=== PATIENT | female | born 1970 | race Caucasian/White ===

== ENCOUNTER 2019-04-30 16:10 | Observation (INO) ==
[2019-04-30] MEDS ORDERED: ZOFRAN INJ 4 MG VIAL IVP PRN (17:28)
[2019-04-30] MEDS ORDERED: MORPHINE SULFATE INJ 2 MG INJ IVP PRN (17:28)
[2019-04-30 18:11] LABS: BASOPHILS % (AUTO) 0.3 % (0.2-1.0); EOSINOPHILS % (AUTO) 0.1 % (0.9-2.9); HEMATOCRIT 46.7 % (36.0-47.0); HEMOGLOBIN 15.9 g/dL (12.0-16.0); LYMPHOCYTES # (AUTO) 0.9 X10^3/uL (1.3-2.9); LYMPHOCYTES % (AUTO) 7.9 % (21.0-51.0); MEAN CORPUSCULAR HEMOGLOBIN 29.9 pg (27.0-34.0); MEAN CORPUSCULAR VOLUME 87.9 fL (80.0-100.0); MEAN PLATELET VOLUME 9.2 fL (7.4-11.0); MONOCYTES # (AUTO) 0.6 x10^3/uL (0.3-0.8); MONOCYTES % (AUTO) 5.4 % (0.0-13.0); NEUTROPHILS # (AUTO) 10.3 x10^3/uL (2.2-4.8); NEUTROPHILS % (AUTO) 86.3 % (42.0-75.0); PLATELET COUNT 250 X10^3/uL (150.0-450.0); RED BLOOD COUNT 5.32 X10^6/uL (3.5-5.4); RED CELL DISTRIBUTION WIDTH 14.4 % (11.6-16.5); WHITE BLOOD COUNT 11.9 X10^3/uL (3.6-10.0)
[2019-04-30 18:19] LABS: ALANINE AMINOTRANSFERASE < 6 Units/L (12-78); ALBUMIN 2.5 g/dL (3.4-5.0); ALKALINE PHOSPHATASE 111 Units/L (46-116); ASPARTATE AMINO TRANSFERASE 10 Units/L (15-37); BLOOD UREA NITROGEN 30 mg/dL (7-18); CALCIUM 9.1 mg/dL (8.5-10.1); CARBON DIOXIDE 26.4 mmol/L (21-32); CHLORIDE 92 mmol/L (98-107); COR CA(FOR HYPOALB) 10.3 mg/dL (8.5-10.1); CREATININE 0.89 mg/dL (0.55-1.02); SODIUM 131 mmol/L (136-145); TOTAL PROTEIN 7.3 g/dL (6.4-8.2); eGFR NON BLACK RACES > 60 (>60)
[2019-04-30 18:20] VITALS: BMI 30.3
[2019-04-30] MEDS ORDERED: K-DUR TAB 20 MEQ PO PRN (18:28)
[2019-04-30] MEDS ORDERED: POTASSIUM CHL 40 MEQ/NS 0.45% 500 ML IV PRN (18:28)
[2019-04-30] MEDS ORDERED: MICRO K EXTEN CAP 10 MEQ PO PRN (18:28)
[2019-04-30] MEDS ORDERED: KLOR-CON PO PRN (18:28)
[2019-04-30] MEDS ORDERED: POTASSIUM CHLORIDE LIQ 20 MEQ UDC PO PRN (18:28)
[2019-04-30] MEDS ORDERED: POTASSIUM CHL 60 MEQ/NS 0.45% 500 ML IV PRN (18:28)
--- NOTE | 2019-04-30 18:34 | RAD ---
History: Pain Exam: KUB Comparison: None Technique: A supine view the abdomen was obtained. Findings: There are multiple loops of mildly dilated small bowel throughout the abdomen. The colon is normal caliber. Surgical clips are seen in the lower pelvis. There is no free air. There are some ill-defined rounded calcifications along the right upper quadrant. IMPRESSION: Probable distal partial small bowel obstruction. Questionable gallstones along the right upper quadrant. Reported By:
[2019-04-30] MEDS ORDERED: MORPHINE SULFATE JET NEB NEB ONE (18:35)
[2019-04-30] MEDS: PEPCID 20 MG IV PREMIX* 20 MG/50 ML BAG IV SCH ×2 (18:50→23:24)
[2019-04-30] MEDS: NS 1000 ML 1,000 ML IV SCH (19:50)
[2019-04-30] MEDS: PROTONIX INJ 40 MG VIAL IVP SCH (23:41)
[2019-04-30] MEDS: K-RIDER 10 MEQ/NS 100 ML 10 MEQ/100 ML BAG IV PRN (23:49)
[2019-05-01 00:25] LABS: BILIRUBIN,URINE 2+ (NEGATIVE); BLOOD/HEMOGLOBIN,URINE NEGATIVE (NEGATIVE); GLUCOSE, URINE NEGATIVE (NEGATIVE); KETONES,URINE 2+ (NEGATIVE); LEUKOCYTE ESTERASE ,URINE 1+ (NEGATIVE); NITRITES,URINE NEGATIVE (NEGATIVE); PROTEIN,URINE 2+ (NEGATIVE); UROBILINOGEN,URINE 3+ (NORMAL)
[2019-05-01 00:31] LABS: APPEARANCE,URINE SLIGHTLY HAZY (CLEAR); COLOR,URINE AMBER (YELLOW)
[2019-05-01 00:38] LABS: BACTERIA,URINE TRACE /HPF (NEGATIVE); HYALINE CASTS, URINE NUMEROUS /LPF (NEGATIVE); RBC,URINE 0-2 /HPF (NONE SEEN); SQUAMOUS EPITHELIAL CELL,UR FEW /HPF (NEGATIVE)
[2019-05-01 00:39] LABS: YEAST,URINE NUMEROUS /HPF (NEGATIVE)
[2019-05-01] MEDS: K-RIDER 10 MEQ/NS 100 ML 10 MEQ/100 ML BAG IV PRN ×3 (00:50→03:05)
[2019-05-01] MEDS: NS 1000 ML 1,000 ML IV SCH (06:05)
--- NOTE | 2019-05-01 06:23 | RAD ---
HISTORY: Small-bowel obstruction Study: KUB Comparison: 04/30/2019 Findings: Multiple dilated loops of small bowel are again identified in the mid abdomen but with some gas distally within the colon. Findings are suggestive of at least a partial small bowel obstruction and are unchanged. No abnormal masses or abnormal calcifications are identified. The previously noted right upper quadrant calcifications are not well demonstrated on this examination. IMPRESSION: Findings suggestive of at least partial small bowel obstruction, unchanged from the prior examination Reported By:
[2019-05-01 06:39] LABS: BASOPHILS % (AUTO) 0.3 % (0.2-1.0); EOSINOPHILS % (AUTO) 0.3 % (0.9-2.9); HEMATOCRIT 46.1 % (36.0-47.0); HEMOGLOBIN 15.5 g/dL (12.0-16.0); LYMPHOCYTES # (AUTO) 0.7 X10^3/uL (1.3-2.9); LYMPHOCYTES % (AUTO) 10.8 % (21.0-51.0); MEAN CORPUSCULAR HEMOGLOBIN 29.8 pg (27.0-34.0); MEAN CORPUSCULAR HGB CONC 33.7 g/dL (33.0-35.0); MEAN CORPUSCULAR VOLUME 88.3 fL (80.0-100.0); MEAN PLATELET VOLUME 9.5 fL (7.4-11.0); MONOCYTES # (AUTO) 0.6 x10^3/uL (0.3-0.8); MONOCYTES % (AUTO) 10.2 % (0.0-13.0); NEUTROPHILS # (AUTO) 4.8 x10^3/uL (2.2-4.8); NEUTROPHILS % (AUTO) 78.4 % (42.0-75.0); PLATELET COUNT 218 X10^3/uL (150.0-450.0); RED BLOOD COUNT 5.22 X10^6/uL (3.5-5.4); WHITE BLOOD COUNT 6.1 X10^3/uL (3.6-10.0)
[2019-05-01 06:57] LABS: ALANINE AMINOTRANSFERASE 6 Units/L (12-78); ALBUMIN 2.4 g/dL (3.4-5.0); ALKALINE PHOSPHATASE 108 Units/L (46-116); ASPARTATE AMINO TRANSFERASE 10 Units/L (15-37); BLOOD UREA NITROGEN 34 mg/dL (7-18); CALCIUM 8.9 mg/dL (8.5-10.1); CARBON DIOXIDE 21.9 mmol/L (21-32); CHLORIDE 96 mmol/L (98-107); COR CA(FOR HYPOALB) 10.2 mg/dL (8.5-10.1); CREATININE 0.84 mg/dL (0.55-1.02); SODIUM 132 mmol/L (136-145); TOTAL PROTEIN 7.2 g/dL (6.4-8.2); eGFR NON BLACK RACES > 60 (>60)
[2019-05-01] MEDS: PEPCID 20 MG IV PREMIX* 20 MG/50 ML BAG IV SCH (08:35)
[2019-05-01] MEDS: PROTONIX INJ 40 MG VIAL IVP SCH (08:35)
[2019-05-01 10:59] VITALS: BP 128/63
[2019-05-01] MEDS ORDERED: CIPRO IV 400 MG PREMIX* 400 MG/200 ML IV.SOLN. IV SCH (11:00)
[2019-05-01] MEDS ORDERED: COLACE CAP 100 MG PO SCH (21:00)
[2019-05-01] MEDS ORDERED: MILK OF MAGNESIA PO SCH (21:00)
--- NOTE | 2019-05-14 21:57 | DR.CARTERS ---
Short Stay Summary - Admission Date Date of Admission: 04/30/19 - Discharge Date Discharge Date: 05/01/19 - Admission Diagnoses (1) Small bowel obstruction Status: Acute (2) Nausea and vomiting Status: Acute - Hospital Course Hospital Course: WAS A DIRECT ADMISSION DUE TO COMPLAINTS OF ABDOMINAL PAIN, CONSTIPATION, AND NAUSEA. ON ADMISSION, LABS WERE OBTAINED. ABNORMAL LAB VALUES INCLUDED THE FOLLOWING: WBC 11.9, SODIUM 131, POTASSIUM 3.2, CHLORIDE 92, BUN 30, GLUCOSE 102, TOTAL BILI 1.40, AST 10, ALT <6, ALBUMIN 2.5, GLOBULIN 4.8. URINALYSIS WAS OBTAINED AND REVEALED: WBC 3-5, RBC 0-2, LEUKOCYTES 1+, BACTERIA TRACE. URINE CULTURE WAS SET UP. A KUB WAS OBTAINED AND REVEALED: PROBABLE DISTAL PARTIAL SMALL BOWEL OBSTRUCTION. QUESTIONABLE GALLSTONES ALONG THE RIGHT UPPER QUADRANT. SHE WAS STARTED ON CIPRO 400MG IV Q12H, NS AT 80ML/HR, PEPCID IV, PROTONIX IV, MORPHINE 2MG IV Q4H PRN, AND ZOFRAN 4MG IV Q4H PRN. WE PLANNED TO FOLLOW UP WITH AM LABS AND KUB AND CONTINUE TO MONITOR. ON THE MORNING FOLLOWING ADMISSION, PATIENT IS ALERT AND ORIENTED, LYING IN BED ON MORNING ROUNDS. SHE CONTINUES WITH ABDOMINAL PAIN AND NAUSEA. ON EXAMINATION, HEART IS REGULAR IN RATE AND RHYTHM. BILATERAL LUNGS NOTED TO BE CLEAR TO AUSCULTATION. ABDOMEN IS ROUND, SOFT, AND NON-TENDER WITH NORMAL BOWEL SOUNDS NOTED IN ALL QUADRANTS. HER VITALS THIS MORNING WERE : 98.4-79-20-96%-128/63. LABS WERE OBTAINED. ABNORMAL LAB VALUES INCLUDE THE FOLLOWING: SODIUM 132, CHLORIDE 96, BUN 34, TOTAL BILI 1.60, AST 10, ALT 6, ALBUMIN 2.4. URINE CULTURE PENDING. A KUB WAS REPEATED THIS MORNING AND REVEALED: Findings suggestive of at least partial small bowel obstruction, unchanged from the prior examination. 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 WE ARE IN AGREEMENT WITH PATIENTS WISHES AND FEEL THAT SHE IS STABLE FOR DISCHARGE. WE PLANNED FOR DISCHARGE. PATIENT VERBALIZED THAT SHE WILL BE SEEKING TREATMENT AT [facility] AND WILL BE LEAVING OUR FACILITY AND IMMEDIATELY GOING THERE. SHE WAS DISCHARGED WITH FAMILY IN STABLE CONDITION. - Discharge Medications Discharge Medications: Home Medication List NK 04/30/19 [History] Prescriptions: - Discharge Plan Disposition: HOME, SELF-CARE Condition: Stable - Follow up/Referrals Follow up/Referrals: Payam Baptiste [Primary Care Provider] - 1 WEEK - Instructions Forms: Excuse From Work or School
== END 2019-05-01 12:00 | disposition home or self-care (01) ==
LOC: MED/SURG
PROVIDERS: ADMIT Internal Medicine; ATTEND Internal Medicine
DX: R10.84 Generalized abdominal pain; R53.83 Other fatigue; K56.600 Partial intestinal obstruction, unspecified as to cause; R11.2 Nausea with vomiting, unspecified; B96.29 Other Escherichia coli [E. coli] as the cause of diseases classified elsewhere
CPT/HCPCS: 36415; 74000; 74018; 80053; 81001; 83735; 85025; 87086; 87088; 87186; 96367; 96374; A4216; A4222; C9113; S0028; G0378; J2405; J3480; J7030